=== PATIENT | male | born 1950 | race Caucasian/White ===

== ENCOUNTER 2022-02-06 11:23 | Inpatient (IN) | payer OTHER, MEDICAID ==
[~2022-02-06] VITALS: Ht 162.6 cm; Wt 57.2 kg
[2022-02-06 11:46] VITALS: BP_SYST 159
--- NOTE | 2022-02-06 11:51 | NUR ---
Patient to ER bed 4 to gown for evaluation. Side rails up. Report given to MARGARITA ORANTES.
--- NOTE | 2022-02-06 11:55 | NUR ---
Patient came with after receiving abnormal lab results hgb 5.8. PMD directed patient to the ED for evaluation and treatment. Pt denies SOB, evidence of bleeding, tarry stools. Patient is calm and cooperative, VSS. Appears in no acute distress at this time. Will continue to provide care as ordered.
--- NOTE | 2022-02-06 11:58 | NUR ---
ER Dr. Lainez at bedside examining patient.
[2022-02-06 12:27] LABS: LYMPHOCYTES # (AUTO) 0.6 K/uL (1.0-5.5); MEAN CORPUSCULAR HEMOGLOBIN 31 pg (27-31); MONOCYTES # (AUTO) 0.4 K/uL (0.0-1.0); MONOCYTES % (AUTO) 8.7 % (1.7-9.3); WHITE BLOOD COUNT (AUTO) 4.3 K/uL (4.8-10.8)
[2022-02-06 12:31] LABS: BASOPHILS % (AUTO) 0.3 % (0.0-2.0); EOSINOPHILS % (AUTO) 0.7 % (0.0-4.0); LYMPHOCYTES % (AUTO) 14.7 % (20.5-51.5); MEAN CORPUSCULAR HGB CONC 35 % (32-36); MEAN CORPUSCULAR VOLUME 89 fL (79.0-98.0); NEUTROPHILS # (AUTO) 3.3 K/uL (1.8-7.7); NEUTROPHILS % (AUTO) 75.6 % (40.0-70.0); PLATELET COUNT (AUTO) 213 K/uL (130-430); RED CELL DISTRIBUTION WIDTH 16.9 % (9.0-15.0)
[2022-02-06 12:38] LABS: ANION GAP 8 (5-15); CALCIUM 8.9 mg/dL (8.4-11.0); CHLORIDE 100 mmol/L (98-107); CREATININE 1.42 mg/dL (0.55-1.30); GLUCOSE 214 mg/dL (70-99); POTASSIUM 3.7 mmol/L (3.5-5.1); SODIUM SERUM 134 mmol/L (136-145); UREA NITROGEN, BLOOD 20 mg/dL (8-21)
[2022-02-06 12:40] LABS: RED BLOOD CELL COUNT(AUTO) 1.61 MIL/uL (4.2-6.2)
[2022-02-06 12:41] LABS: HEMATOCRIT 14.4 % (36-54)
[2022-02-06 12:46] LABS: ALANINE AMINOTRANSFERASE 15 U/L (12-78); ALBUMIN 2.3 g/dL (3.4-4.8); ASPARTATE AMINOTRANSFERASE 65 U/L (10-37); TOTAL BILIRUBIN 0.4 mg/dL (0.0-1.0)
--- NOTE | 2022-02-06 14:34 | NUR ---
BLOOD CONSENT RECEIVED FROM . DR RILEY SPOKE TO PT.
[2022-02-06 16:15] VITALS: BP_SYST 131
--- NOTE | 2022-02-06 16:22 | NUR ---
Patient will be admitted to care of Dr. Aviles. Admitted to Med Surg unit. Will go to room 122B. Belongings list completed. Complete and up to date summary report printed. SBAR report to be given at bedside with opportunity for questions.
--- NOTE | 2022-02-06 16:25 | NUR ---
ADMISSION: PATIENT ADMITTED TO ROOM 122B. PATIENT IS AAOX4, ABLE TO MAKE NEEDS KNOWN. LIMITED PRYDEINIG. PATIENT ONLY SPEAKS INDONESIAN. AT THE BEDSIDE TO GIVE A LITTLE BIT TRANSLATION. SON IS AT THE WAITING AREA WHICH CAN FULLY TRANSLATE. TOLD PATIENT'S TO GET SON TO COME IN. PATIENT DENIES PAIN OR DISTRESS. EXPLAINED POC TO PATIENT AND HE VERBALIZED UNDERSTANDING WITH SON TRANSLATING. ABLE TO AMBULATE USING A CANE OR WITH STAND BY ASSIST. IV TO THE RAC 20 G INTACT AND PATENT. PER PATIENT'S SON "LARY", HIS FATHER EATS PUREED AT HOME DUE TO NOT HAVING ANY TEETH. WILL CHANGE THE DIET TO PUREED. BED IN LOW AND LOCK POSITION. CALL LIGHT WITHIN REACH. STABLE CONDITION. AWAITING FOR BLOOD TO BE READY FROM BLOOD BANK.
[2022-02-06] MEDS ORDERED: LIP20 PO (18:34)
[2022-02-06] MEDS ORDERED: OLAP150T PO (18:34)
[2022-02-06] MEDS ORDERED: LOSA100T23 PO (18:34)
[2022-02-06] MEDS ORDERED: NOR10 PO (18:34)
[2022-02-06] MEDS ORDERED: METF-518 PO (18:34)
--- NOTE | 2022-02-06 18:45 | NUR ---
CLOSING NOTES: PATIENT IS RESTING IN BED TRYING TO EAT HIS DINNER. SON AND AT THE BEDSIDE HELPING HIM EAT. NO ADDITIONAL DISTRESS NOTED. ALL NEEDS MET. STABLE CONDITION.
--- NOTE | 2022-02-06 19:00 | NUR ---
RECEIVED PT IN BED WITH FAMILY AT THE BEDSIDE.AOX4.ON RA. IVL R AC G20, PATENT AND INTACT.BED IN LOWEST POSITION.BEDSIDE TABLE AND CALL LIGHT ARE WITHIN REACH.ALL NEEDS ARE MET AT THIS TIME.
--- NOTE | 2022-02-06 19:45 | NUR ---
CALLED BACK: DR PHELAN CALLED BACK AND MADE HIM AWARE OF PATIENT ADMITTED TO THE UNIT. OKAY TO CONT. ALL HOME MEDICATION AND CHANGE 1U PRBC TRANFUSION TO 2U PRBC TRANSFUSION. WILL ENDORSE TO THE CUSTOMER SALES DISTRIBUTOR RN.
[2022-02-06 20:00] VITALS: BP_SYST 126
--- NOTE | 2022-02-06 20:35 | NUR ---
FIRST UNIT PRBC STARTED.EDUCATED PT REGARDING THE BLOOD TRANSFUSION REACTION AND TO REPORT RN IF PT EXPERIENCE ANY SYMPTOMS.PT HAS NO ALLERGIC REACTION AND NO UNTOWARD SIGNS AND SYMPTOMS NOTED AT THIS TIME.
[2022-02-06] MEDS: LOSARTAN POTASSIUM 50 MG TABLET (COZAAR) PO SCH (21:06)
--- NOTE | 2022-02-06 23:40 | NUR ---
FIRST UNIT PRBC WAS TRANSFUSED AT THI TIME.
[2022-02-07] VITALS: BP_SYST 132
--- NOTE | 2022-02-07 00:45 | NUR ---
SECOND UNIT PRBC STARTED AT THIS TIME.NO ALLERGIC REACTION NOTED.
--- NOTE | 2022-02-07 07:30 | NUR ---
OPENING NOTES: PATIENT IS RESTING IN BED QUIETLY. AAOX4 W/ EPISODE OF FORGETFULNESS. ABLE TO MAKE NEEDS KNOWN. NO DISTRESS OR PAIN NOTED AT THIS TIME. EXPLAINED POC AND PATIENT VERBALIZED UNDERSTANDING. BED IN LOW AND LOCK POSITION. CALL LIGHT AND BEDSIDE TABLE WITHIN REACH. STABLE CONDITION.
[2022-02-07 08:24] VITALS: BP_SYST 112
[2022-02-07] MEDS: metFORMIN HCL 500 MG TABLET PO SCH ×2 (08:26→17:43)
[2022-02-07] MEDS: LOSARTAN POTASSIUM 50 MG TABLET (COZAAR) PO SCH ×2 (08:26→20:41)
[2022-02-07] MEDS: ATORVASTATIN 20 MG TABLET PO SCH (08:26)
[2022-02-07] MEDS: amLODIPine BESYLATE 10 MG TABLET PO SCH (08:26)
[2022-02-07] MEDS: LYNPARZA 150 MG PO SCH ×2 (09:00→20:41)
[2022-02-07 10:31] LABS: BASOPHILS % (AUTO) 0.4 % (0.0-2.0); EOSINOPHILS % (AUTO) 0.5 % (0.0-4.0); HEMATOCRIT 23.8 % (36-54); HEMOGLOBIN 8.1 g/dL (14.0-18.0); LYMPHOCYTES # (AUTO) 0.7 K/uL (1.0-5.5); LYMPHOCYTES % (AUTO) 11.6 % (20.5-51.5); MEAN CORPUSCULAR HEMOGLOBIN 30 pg (27-31); MEAN CORPUSCULAR HGB CONC 34 % (32-36); MEAN CORPUSCULAR VOLUME 88 fL (79.0-98.0); MONOCYTES # (AUTO) 0.7 K/uL (0.0-1.0); MONOCYTES % (AUTO) 11.3 % (1.7-9.3); NEUTROPHILS # (AUTO) 4.6 K/uL (1.8-7.7); NEUTROPHILS % (AUTO) 76.2 % (40.0-70.0); PLATELET COUNT (AUTO) 207 K/uL (130-430); RED BLOOD CELL COUNT(AUTO) 2.69 MIL/uL (4.2-6.2); RED CELL DISTRIBUTION WIDTH 15.9 % (9.0-15.0)
--- NOTE | 2022-02-07 11:23 | NUR ---
CONSULTATION PAGED REASON FOR CONSULTATION:GI ANEMIA WAS CONSULT CALLED?Y -PERSON WHO WAS NOTIFIED:RICHIE CONSULTING PHYSICIAN:GIN TRISTAN SEWER LINE PHOTO INSPECTOR SPECIALTY:GI SEWER LINE PHOTO INSPECTOR PHONE NUMBER:[phone] REQUESTING PHYSICIAN:ANNA BAER
[2022-02-07 12:00] VITALS: BP_SYST 122
--- NOTE | 2022-02-07 12:00 | NUR ---
STOOL OCCULT: GAVE HAT TO PATIENT TO COLLECT STOOL FOR STOOL OCCULT BLOOD ORDER. NO BM AT THIS TIME.
[2022-02-07 16:44] VITALS: BP_SYST 125
--- NOTE | 2022-02-07 18:55 | NUR ---
CLOSING NOTES: PATIENT IS RESTING IN BED ACCOMPANIED BY HIS SON AND SITTING AT THE BEDSIDE. NO ADDITIONAL DISTRESS NOTED. ALL NEEDS MET. STABLE CONDITION. Addendum: 02/07/22 at 1857 by Radha Collins RN RN NO BM AT THIS TIME.
[2022-02-07 20:00] VITALS: BP_SYST 134
[2022-02-08 00:22] VITALS: BP_SYST 131
[2022-02-08 07:55] LABS: BASOPHILS % (AUTO) 0.1 % (0.0-2.0); EOSINOPHILS % (AUTO) 0.9 % (0.0-4.0); HEMATOCRIT 22.9 % (36-54); HEMOGLOBIN 8.1 g/dL (14.0-18.0); LYMPHOCYTES # (AUTO) 0.8 K/uL (1.0-5.5); LYMPHOCYTES % (AUTO) 14.8 % (20.5-51.5); MEAN CORPUSCULAR HEMOGLOBIN 31 pg (27-31); MEAN CORPUSCULAR HGB CONC 35 % (32-36); MEAN CORPUSCULAR VOLUME 88 fL (79.0-98.0); MONOCYTES # (AUTO) 0.7 K/uL (0.0-1.0); MONOCYTES % (AUTO) 12.7 % (1.7-9.3); NEUTROPHILS # (AUTO) 3.9 K/uL (1.8-7.7); NEUTROPHILS % (AUTO) 71.5 % (40.0-70.0); PLATELET COUNT (AUTO) 204 K/uL (130-430); RED BLOOD CELL COUNT(AUTO) 2.61 MIL/uL (4.2-6.2); RED CELL DISTRIBUTION WIDTH 16.2 % (9.0-15.0); WHITE BLOOD COUNT (AUTO) 5.5 K/uL (4.8-10.8)
[2022-02-08 08:00] VITALS: BP_SYST 123
[2022-02-08] MEDS: LYNPARZA 150 MG PO SCH ×2 (09:00→21:00)
[2022-02-08] MEDS: ATORVASTATIN 20 MG TABLET PO SCH (09:04)
[2022-02-08] MEDS: LOSARTAN POTASSIUM 50 MG TABLET (COZAAR) PO SCH ×2 (09:04→21:48)
[2022-02-08] MEDS: metFORMIN HCL 500 MG TABLET PO SCH ×2 (09:04→17:19)
[2022-02-08] MEDS: amLODIPine BESYLATE 10 MG TABLET PO SCH (09:04)
[2022-02-08 09:05] LABS: ALANINE AMINOTRANSFERASE 14 U/L (12-78); ALBUMIN 2.2 g/dL (3.4-4.8); ANION GAP 8 (5-15); ASPARTATE AMINOTRANSFERASE 29 U/L (10-37); CALCIUM 9.1 mg/dL (8.4-11.0); CHLORIDE 100 mmol/L (98-107); CREATININE 1.13 mg/dL (0.55-1.30); GLUCOSE 135 mg/dL (70-99); POTASSIUM 3.5 mmol/L (3.5-5.1); SODIUM SERUM 133 mmol/L (136-145); TOTAL BILIRUBIN 0.8 mg/dL (0.0-1.0); UREA NITROGEN, BLOOD 17 mg/dL (8-21)
[2022-02-08 09:23] LABS: TOTAL IRON BIND. CAPACITY 192 ug/dL (250-450)
--- NOTE | 2022-02-08 10:10 | NUR ---
DR. SMITH CONSULT: DR SMITH AT THE BEDSIDE AND STATED THAT HE MIGHT DO AN EGD AND COLONOSCOPY TOMORROW IF THE PATIENT NEVER HAD THEM DONE RECENTLY. PATIENT AND HIS SPEAK LIMITED LATVIAN AND SON IS AT WORK TILL 2PM. WILL CALL SON LATER TODAY AND LET HIM KNOW.
[2022-02-08 12:24] VITALS: BP_SYST 128
--- NOTE | 2022-02-08 15:28 | NUR ---
REFUSED EGD/COLONOSCOPY: [facility]ERAS GI CREDIT RISK ANALYST WAS AT THE BEDSIDE TRYING TO GET A CONSENT FROM PATIENT USING A MISSION WORKER. HOWEVER, PATIENT REFUSED EGD/COLONOSCOPY. PATIENT STATE, HE MIGHT OR NOT MAKE IT FROM THE PROCEDURE. PAGED DR SMITH. AWAITING AT THIS TIME.
--- NOTE | 2022-02-08 15:58 | NUR ---
Dietitian Recommendations * Continue plan for Clear liquid diet prior to colonoscopy * Advance diet if/when medically appropriate (consider supplementation d/t unintentional wt loss/risk for malnutrition) LP, MS, RD Please refer to Nutrition Assessment for details. Addendum: 02/08/22 at [address] Amended: Links added.
[2022-02-08 16:14] VITALS: BP_SYST 105
--- NOTE | 2022-02-08 17:00 | NUR ---
HELD PREP FOR EGD/COLONOSCOPY: PATIENT REFUSED TO HAVE EGD/COLONOSCOPY DONE IN AM. HELD PREP (STOOL SOFT AND GOLYTELY).
[2022-02-08] MEDS: BISACODYL 5 MG TABLET.DR (DULCOLAX) PO ONE ×2 (17:19→21:43)
[2022-02-08] MEDS: GOLYTELY / COLYTE SOLUTION 4 LITERS PO ONE ×2 (17:20→21:42)
--- NOTE | 2022-02-08 19:00 | NUR ---
CLOSING NOTES: PATIENT IS RESTING IN BED ACCOMPANIED BY HIS SON AND SITTING AT THE BEDSIDE. NO BM AT THIS TIME. NO ADDITIONAL DISTRESS NOTED. ALL NEEDS MET. STABLE CONDITION.
--- NOTE | 2022-02-08 19:00 | NUR ---
EGD/COLONOSCOPY: [id number]: PATIENT'S SON LARY AT THE BEDSIDE AND EXPLAINED TO HIM THAT THE PATIENT REFUSED THE EGD AND COLONOSCOPY FOR TOMORROW. EXPLAINED RISK AND BENEFITS. ALSO EXPLAINED THE PURPOSE OF THE PROCEDURE AND THE PREP FOR THE PROCEDURE (STOOL SOFTENER AND GOLYTELY). LARY TRANSLATED EVERYTHING TO THE PATIENT AND DECIDED HE WANTS TO DO THE PROCEDURE (TOOK 30 MINUTES OF BACK OF FORTH DISCUSSION). WILL ENDORSE TO NEXT SHIFT RN.
[2022-02-08 20:00] VITALS: BP_SYST 133
[2022-02-09 00:08] VITALS: BP_SYST 138
--- NOTE | 2022-02-09 02:00 | NUR ---
Patient has ingested approximately half of the GoLytely. Patient and family have been encouraged throughout night and informed of the importance of complete bowel prep for the procedure. Patient has had multiple bowel movements that are nearly liquid and brown in color.
--- NOTE | 2022-02-09 03:00 | NUR ---
Patient has had more of GoLytely but vomited once and states his stomach is upset.
--- NOTE | 2022-02-09 04:00 | NUR ---
PAGED DR. SMITH
--- NOTE | 2022-02-09 06:49 | NUR ---
DR. SMITH PAGED SECOND PAGE TO FOR PRIMARY NURSE FOR PATIENT DUE TO PATIENT NOT TOLERATING COLONOSCOPY AND EGD PREP. SPOKE TO EXCHANGE PORTIA, AWAITING CALL BACK.
--- NOTE | 2022-02-09 07:07 | NUR ---
Informed Dr. Espinosa that patient finished about 2/3 of GoLytely but vomited once and is having liquid light brown bowel movements. Received order for magnesium citrate once and to give tap water enema one hour after magnesium citrate. Dr. Espinosa also stated he plans to speak to the patient and son this morning.
[2022-02-09] MEDS ORDERED: MAGNESIUM CITRATE 300 ML ORAL SOLUTION PO ONE ×2 (07:15→09:40)
--- NOTE | 2022-02-09 07:42 | NUR ---
Report received from shift production associate RN. Patient stable condition. No acute distress noted.
[2022-02-09 08:00] VITALS: BP_SYST 142
[2022-02-09] MEDS: metFORMIN HCL 500 MG TABLET PO SCH ×2 (08:00→17:38)
[2022-02-09 08:19] LABS: INR 1.1 (0.80-1.20); PROTHROMBIN TIME 10.7 SECS (9.5-12.5)
[2022-02-09] MEDS ORDERED: MEPERIDINE 100 MG INJ. 100 MG/ML VIAL ONE (08:46)
[2022-02-09] MEDS ORDERED: MIDAZOLAM HCL 5 MG/5 ML VIAL ONE (08:46)
[2022-02-09] MEDS: LYNPARZA 150 MG PO SCH (09:00)
[2022-02-09] MEDS: LOSARTAN POTASSIUM 50 MG TABLET (COZAAR) PO SCH (09:00)
[2022-02-09] MEDS: amLODIPine BESYLATE 10 MG TABLET PO SCH (09:00)
[2022-02-09] MEDS: ATORVASTATIN 20 MG TABLET PO SCH (09:00)
--- NOTE | 2022-02-09 10:15 | NUR ---
Patient went for GI procedure.
--- NOTE | 2022-02-09 12:17 | NUR ---
Patient returned from procedure. Report received from LAMBERTO Cortes for continuity of care. Patient in stable condition. No distress noted.
[2022-02-09] MEDS ORDERED: DOCU-144 PO (12:47)
[2022-02-09 13:21] LABS: BASOPHILS % (AUTO) 0.4 % (0.0-2.0); EOSINOPHILS % (AUTO) 0.8 % (0.0-4.0); HEMATOCRIT 23.8 % (36-54); HEMOGLOBIN 8.1 g/dL (14.0-18.0); LYMPHOCYTES # (AUTO) 0.9 K/uL (1.0-5.5); LYMPHOCYTES % (AUTO) 16.7 % (20.5-51.5); MEAN CORPUSCULAR HEMOGLOBIN 30 pg (27-31); MEAN CORPUSCULAR HGB CONC 34 % (32-36); MEAN CORPUSCULAR VOLUME 89 fL (79.0-98.0); MONOCYTES # (AUTO) 0.5 K/uL (0.0-1.0); NEUTROPHILS # (AUTO) 3.9 K/uL (1.8-7.7); NEUTROPHILS % (AUTO) 72.1 % (40.0-70.0); PLATELET COUNT (AUTO) 241 K/uL (130-430); RED BLOOD CELL COUNT(AUTO) 2.67 MIL/uL (4.2-6.2); RED CELL DISTRIBUTION WIDTH 16.2 % (9.0-15.0); WHITE BLOOD COUNT (AUTO) 5.4 K/uL (4.8-10.8)
[2022-02-09 15:45] VITALS: BP_SYST 105
[2022-02-09 16:00] VITALS: BP_SYST 136
[2022-02-09 18:56] VITALS: BP_SYST 136
--- NOTE | 2022-02-09 19:52 | NUR ---
Patient ready for discharge. All paperwork and prescription given for patient. Patient educated on aftercare instructions and follow up. Patient open to making appointment with his primary care physician. No acute distress noted. Vital signs stable. Patient ambulatory with steady gait to wheelchair where he was taken to [facility] lobby into car. IV catheter removed. No distress noted.
[2022-02-09 20:45] VITALS: BP_SYST 132
[2022-02-10 08:06] LABS: FOLATE (FOLIC ACID) 11.6 ng/mL (>3.0)
[2022-02-21] MEDS ORDERED: NOR10 PO (10:37)
[2022-02-21] MEDS ORDERED: LIP40 PO (10:40)
[2022-02-21] MEDS ORDERED: METF-518 PO (10:40)
[2022-02-21] MEDS ORDERED: METF-379 PO (18:12)
== END 2022-02-09 19:45 | disposition home or self-care (01) | DRG 377 ==
LOC: SED 11:23 → SMU 14:48 → OBSVTOIN 02-08 08:00
PROVIDERS: ADMIT Internal Medicine; ATTEND Internal Medicine
PROC: 30233N1 Transfusion of Nonautologous Red Blood Cells into Peripheral Vein, Percutaneous Approach (ICD-10-PCS; 2022-02-06)
PROC: 0DB78ZX Excision of Stomach, Pylorus, Via Natural or Artificial Opening Endoscopic, Diagnostic (ICD-10-PCS; 2022-02-09)
PROC: 0DJD8ZZ Inspection of Lower Intestinal Tract, Via Natural or Artificial Opening Endoscopic (ICD-10-PCS; principal; 2022-02-09 09:45)
PROC: 0DB98ZX Excision of Duodenum, Via Natural or Artificial Opening Endoscopic, Diagnostic (ICD-10-PCS; 2022-02-09 09:45)
DX: K92.2 Gastrointestinal hemorrhage, unspecified (principal); E43 Unspecified severe protein-calorie malnutrition; N17.9 Acute kidney failure, unspecified; C61 Malignant neoplasm of prostate; K64.8 Other hemorrhoids; D64.9 Anemia, unspecified; I12.9 Hypertensive chronic kidney disease with stage 1 through stage 4 chronic kidney disease, or unspecified chronic kidney disease; E11.22 Type 2 diabetes mellitus with diabetic chronic kidney disease; N18.31 Chronic kidney disease, stage 3a; Z20.822 Contact with and (suspected) exposure to COVID-19; E78.5 Hyperlipidemia, unspecified; Z79.84 Long term (current) use of oral hypoglycemic drugs; Z79.899 Other long term (current) drug therapy
CPT/HCPCS: 36415; 43239; 45378; 71045; 80053; 82272; 82607; 82728; 82746; 82962; 83010; 83540; 83550; 83880; 84484; 85025; 85610-TC; 86886; 86900; 86901; 86920; 87081; 88305; 88312; 88313; 93005; G0378; J2175; J2250; P9021